=== PATIENT | female | born 1930 | race Caucasian/White ===

== ENCOUNTER 2018-08-31 18:24 | Emergency (ER) | payer MEDICARE, OTHER ==
[2018-08-31] MEDS ORDERED: Sodium Chloride 0.9% 1,000 ML IV SCH (19:15)
--- NOTE | 2018-08-31 20:01 | EDM.PDOC ---
ED HPI GENERAL MEDICAL PROBLEM - General Chief Complaint: Gastrointestinal Problem Stated Complaint: DIARRHEA Time Seen by Provider: 08/31/18 19:35 Source of Information: Reports: Patient History Limitations: Reports: No Limitations - History of Present Illness INITIAL COMMENTS - FREE TEXT/NARRATIVE: Yuli 88-year-old female with diarrhea for 10 days. She describes loose watery stools with no blood .Has happened several times today. There is no associated vomiting, fever, chills or abdominal pain. She was seen recently and tested negative for C. difficile.A trial of Immodium has failed. Abdominal Pain Score (Numeric/FACES): 3 - Related Data Allergies Allergy/AdvReac Type Severity Reaction Status Date / Time codeine Allergy Hives Verified 08/31/18 18:35 Penicillins Allergy Hives Verified 08/31/18 18:35 Home Meds: Home Meds Ascorbate Calcium [Vitamin C] 500 mg PO DAILY 08/31/18 [History] Aspirin [Ecotrin] 325 mg PO DAILY 08/31/18 [History] Calcium Carbonate [Calcium] 1,200 mg DAILY 08/31/18 [History] Cholecalciferol (Vitamin D3) [Vitamin D3] 800 unit PO DAILY 08/31/18 [History] Cyanocobalamin (Vitamin B12) [Vitamin B12] 250 mcg PO DAILY 08/31/18 [History] Lisinopril [Prinivil] 20 mg PO BEDTIME 08/31/18 [History] Lisinopril/Hydrochlorothiazide [Zestoretic 20-25 mg Tablet] 1 each PO DAILY 01/12 [History] Loperamide HCl [Loperamide] 2 mg QID PRN 08/31/18 [History] Magnesium 250 mg PO BID 08/31/18 [History] Multivitamin [Multivitamins] 1 each PO DAILY 08/31/18 [History] Simvastatin [Zocor] 20 mg PO BEDTIME 08/31/18 [History] Tolterodine [Detrol LA 24 Hr] 2 mg PO DAILY 08/31/18 [History] sitaGLIPtin Phos/Metformin HCl [Janumet 50-500 MG] 1 each PO BID 08/31/18 [ History] Past Medical History Cardiovascular History: Reports: High Cholesterol, Hypertension Gastrointestinal History: Reports: Cholelithiasis, Chronic Constipation, Hepatitis Other Gastrointestinal History: Hepatitis C Genitourinary History: Reports: None, Renal Disease Other Genitourinary History: stage 3 kidney disease LABORATORY ENGINEER History: Reports: Other LABORATORY ENGINEER History: [id number] Musculoskeletal History: Reports: Fracture Other Musculoskeletal History: hx fx ribs, L wrist x 2, R wrist x 1, Neurological History: Reports: Migraines Endocrine/Metabolic History: Reports: Diabetes, Type II, Hyperparathyroidism - Infectious Disease History Infectious Disease History: Reports: Chicken Pox, Hepatitis non A,B,C, Measles, Mumps - Past Surgical History HEENT Surgical History: Reports: Adenoidectomy, Cataract Surgery, Naso-Sinus Surgery, Tonsillectomy Other HEENT Surgeries/Procedures: bilat cataract Cardiovascular Surgical History: Reports: None GI Surgical History: Reports: Appendectomy, Colonoscopy Female Surgical History: Reports: Hysterectomy, Salpingo-Oophorectomy Endocrine Surgical History: Reports: Parathyroidectomy Other Endocrine Surgeries/Procedures: 1 parathyroid removed Social & Family History - Family History Family Medical History: Noncontributory - Tobacco Use Smoking Status *Q: Never Smoker - Caffeine Use Caffeine Use: Reports: Coffee - Recreational Drug Use Recreational Drug Use: No ED ROS GENERAL - Review of Systems Review Of Systems: ROS reveals no pertinent complaints other than HPI. ED EXAM, GI/ABD - Physical Exam Exam: See Below Exam Limited By: No Limitations General Appearance: Alert, WD/WN Eyes: Bilateral: Normal Appearance, EOMI Nose: Normal Inspection Neck: Normal Inspection Respiratory/Chest: No Respiratory Distress, Lungs Clear Cardiovascular: Normal Peripheral Pulses GI/Abdominal Exam: Normal Bowel Sounds, Soft, Non-Tender, No Mass. No: Distended, Rigid, Rebound, Hepatomegaly, Splenomegaly Course - Vital Signs Last Recorded V/S: Last Vital Signs Temp 97.3 F 08/31/18 18:29 Pulse 78 08/31/18 18:29 Resp 18 08/31/18 18:29 BP 166/83 H 08/31/18 18:29 Pulse Ox 98 08/31/18 18:29 - Orders/Labs/Meds Orders: Active Orders 24 hr Category Date Time Status CDIFF TOXIN A+B GROUP [OP] Stat Lab 08/31/18 20:00 Received Sodium Chloride 0.9% [Normal Saline] 1,000 ml Med 08/31/18 19:15 Active IV ASDIRECTED Sodium Chloride 0.9% [Saline Flush] Med 08/31/18 20:10 Active 10 ml FLUSH ASDIRECTED PRN Peripheral IV Insertion Adult [OM.PC] Routine Oth 08/31/18 19:10 Ordered Medication Orders Sodium Chloride (Normal Saline) 1,000 mls @ 999 mls/hr IV ASDIRECTED SAKSHI Last Admin: 08/31/18 19:15 Dose: 999 mls/hr Sodium Chloride (Saline Flush) 10 ml FLUSH ASDIRECTED PRN PRN Reason: Keep Vein Open Last Admin: 08/31/18 19:10 Dose: 10 ml Labs: Laboratory Tests 08/31/18 08/31/18 Range/Units 18:48 18:48 WBC 7.9 (4.5-12.0) X10-3/uL RBC 3.51 (3.23-5.20) x10(6)uL Hgb 11.5 (11.5-15.5) g/dL Hct 33.7 (30.0-51.3) % MCV 95.9 (80-96) fL MCH 32.7 (27.7-33.6) pg MCHC 34.1 (32.2-35.4) g/dL RDW 12.1 (11.5-15.5) % Plt Count 298 (125-369) X10(3)uL MPV 7.3 L (7.4-10.4) fL Neut % (Auto) 64.3 (46-82) % Lymph % (Auto) 20.1 (13-37) % Pope % (Auto) 11.9 (4-12) % Eos % (Auto) 3 (1.0-5.0) % Baso % (Auto) 0 (0-2) % Neut # (Auto) 5.1 (1.6-8.3) # Lymph # (Auto) 1.6 (0.6-5.0) # Pope # (Auto) 0.9 (0.0-1.3) # Eos # (Auto) 0.3 (0.0-0.8) # Baso # (Auto) 0.0 (0.0-0.2) # Sodium 130 L (135-145) mmol/L Potassium 4.5 (3.5-5.3) mmol/L Chloride 94 L (100-110) mmol/L Carbon Dioxide 27 (21-32) mmol/L BUN 22 H (7-18) mg/dL Creatinine 1.2 H (0.55-1.02) mg/dL Est Cr Clr Drug Dosing 25.39 mL/min Estimated GFR (MDRD) 43 L (>60) BUN/Creatinine Ratio 18.3 (9-20) Glucose 105 (80-116) mg/dL Calcium 9.3 (8.6-10.2) mg/dL Total Bilirubin 0.4 (0.1-1.3) mg/dL AST 32 H (5-25) IU/L ALT 26 (12-36) U/L Alkaline Phosphatase 69 (56-112) IU/L Total Protein 6.9 (6.0-8.0) g/dL Albumin 3.2 (3.2-4.6) g/dL Globulin 3.7 g/dL Albumin/Globulin Ratio 0.9 Meds: Medications Generic Name Dose Route Start Last Admin Trade Name Milla PRN Reason Stop Dose Admin Sodium Chloride 1,000 mls @ 999 mls/hr 08/31/18 19:15 08/31/18 19:15 Normal Saline IV 999 mls/hr ASDIRECTED SAKSHI Administration Sodium Chloride 10 ml 08/31/18 20:10 08/31/18 19:10 Saline Flush FLUSH 10 ml ASDIRECTED PRN Administration Keep Vein Open Discontinued Medications Generic Name Dose Route Start Last Admin Trade Name Milla PRN Reason Stop Dose Admin Diphenoxylate HCl/Atropine 2 tab 08/31/18 20:07 08/31/18 20:15 Lomotil 0.025-2.5 Mg PO 08/31/18 20:08 1 tab ONETIME ONE Administration Metronidazole 500 mg 08/31/18 20:08 08/31/18 20:15 Flagyl PO 08/31/18 20:09 500 mg ONETIME ONE Administration Metronidazole 500 mg 08/31/18 20:09 08/31/18 20:16 Flagyl PO 08/31/18 20:10 Not Given ONETIME ONE Departure - Departure Time of Disposition: 20:17 Disposition: Home, Self-Care 01 Condition: Good Clinical Impression: Diarrhea - Discharge Information Referrals: Madie Sanches, ELECTRIC RAZOR ASSEMBLER [Primary Care Provider] - Forms: ED Department Discharge - Problem List & Annotations (1) Diarrhea SNOMED Code(s): 57698964 Code(s): R19.7 - DIARRHEA, UNSPECIFIED Status: Acute Current Visit: Yes Qualifiers: Diarrhea type: unspecified type Qualified Code(s): R19.7 - Diarrhea, unspecified (2) Hyponatremia SNOMED Code(s): 16266955 Code(s): E87.1 - HYPO-OSMOLALITY AND HYPONATREMIA Status: Acute Current Visit: Yes - Problem List Review Problem List Initiated/Reviewed/Updated: Yes - My Orders Last 24 Hours: My Active Orders 08/31/18 19:10 Peripheral IV Insertion Adult [OM.PC] Routine 08/31/18 19:15 Sodium Chloride 0.9% [Normal Saline] 1,000 ml IV ASDIRECTED 08/31/18 20:00 CDIFF TOXIN A+B GROUP [OP] Stat 08/31/18 20:10 Sodium Chloride 0.9% [Saline Flush] 10 ml FLUSH ASDIRECTED PRN - Assessment/Plan Last 24 Hours: My Active Orders 08/31/18 19:10 Peripheral IV Insertion Adult [OM.PC] Routine 08/31/18 19:15 Sodium Chloride 0.9% [Normal Saline] 1,000 ml IV ASDIRECTED 08/31/18 20:00 CDIFF TOXIN A+B GROUP [OP] Stat 08/31/18 20:10 Sodium Chloride 0.9% [Saline Flush] 10 ml FLUSH ASDIRECTED PRN Plan: 1 L NS. I will send out another stool,but treat [id number] Lomotil.
[2018-08-31] MEDS ORDERED: Atropine/Diphenoxylate 0.025-2.5 MG Tab PO ONE (20:07)
[2018-08-31] MEDS ORDERED: metroNIDAZOLE 500 MG Tab PO ONE ×2 (20:08→20:09)
[2018-08-31] MEDS ORDERED: Sodium Chloride 0.9% 10 ML Syringe FLUSH PRN (20:10)
== END 2018-08-31 20:43 | disposition home or self-care (01) ==
LOC: FB.ED 18:24
DX: R19.7 Diarrhea, unspecified (principal); E78.00 Pure hypercholesterolemia, unspecified; N18.3 Chronic kidney disease, stage 3 (moderate); I12.9 Hypertensive chronic kidney disease with stage 1 through stage 4 chronic kidney disease, or unspecified chronic kidney disease; E11.22 Type 2 diabetes mellitus with diabetic chronic kidney disease; E05.90 Thyrotoxicosis, unspecified without thyrotoxic crisis or storm; Z88.5 Allergy status to narcotic agent; Z88.0 Allergy status to penicillin; Z88.2 Allergy status to sulfonamides; Z79.82 Long term (current) use of aspirin; Z79.84 Long term (current) use of oral hypoglycemic drugs
CPT/HCPCS: 36415; 80053; 85025; 87324; 96360; 99284; A9270; J7030

== ENCOUNTER 2018-09-03 14:13 | Emergency (ER) | payer MEDICARE, OTHER ==
--- NOTE | 2018-09-03 15:03 | EDM.PDOC ---
ED HPI GENERAL MEDICAL PROBLEM - General Chief Complaint: Gastrointestinal Problem Stated Complaint: NAUSEA, DIARRHEA, LOWER BACK PAIN Time Seen by Provider: 09/03/18 14:13 Source of Information: Reports: Patient, Family History Limitations: Reports: No Limitations - History of Present Illness INITIAL COMMENTS - FREE TEXT/NARRATIVE: 88 y.o.w.f came with her daughter to the ed due to diarrhea for 10 days. Pt is doing fine when she take Imodium . She was tested for C Diff which was neg. Pt is for 7 days on Flagyl and cipro with out improvement passing loose stool. Pt did not loose weight. No dizziness, no lightheadedness no vomiting, no SOB. Her last colonoscopy was several years ago. No blood in stool. As per daughter, pt is not taking her meds as recommended. Pt lives by herself, No other acute medical issues. BP 132/71 RR 17 Pulse ox 100% on RA pulse 75 Temp 36.6 Onset: Unknown/Unsure Onset Date: 08/23/18 Onset Time: 07:00 Duration: Week(s):, Intermittent, Waxing/Waning Location: Reports: Abdomen Quality: Reports: Same as Previous Episode, Other (no weight loss) Severity: Mild Improves with: Reports: Medication Context: Reports: Other Associated Symptoms: Reports: Other (occ nause, no vomiting ) Treatments SMOKING PIPE REPAIRER: Reports: Other (see below) (Flagyl, Cipro Imodium) - Related Data Allergies Allergy/AdvReac Type Severity Reaction Status Date / Time codeine Allergy Hives Verified 09/03/18 15:27 Penicillins Allergy Hives Verified 09/03/18 15:27 Home Meds: Home Meds Ascorbate Calcium [Vitamin C] 500 mg PO DAILY 08/31/18 [History] Aspirin [Ecotrin] 325 mg PO DAILY 08/31/18 [History] Calcium Carbonate [Calcium] 1,200 mg DAILY 08/31/18 [History] Cholecalciferol (Vitamin D3) [Vitamin D3] 800 unit PO DAILY 08/31/18 [History] Cyanocobalamin (Vitamin B12) [Vitamin B12] 250 mcg PO DAILY 08/31/18 [History] Lisinopril [Prinivil] 20 mg PO BEDTIME 08/31/18 [History] Lisinopril/Hydrochlorothiazide [Zestoretic 20-25 mg Tablet] 1 each PO DAILY 01/12 [History] Loperamide HCl [Loperamide] 2 mg QID PRN 08/31/18 [History] Magnesium 250 mg PO BID 08/31/18 [History] Multivitamin [Multivitamins] 1 each PO DAILY 08/31/18 [History] Simvastatin [Zocor] 20 mg PO BEDTIME 08/31/18 [History] Tolterodine [Detrol LA 24 Hr] 2 mg PO DAILY 08/31/18 [History] sitaGLIPtin Phos/Metformin HCl [Janumet 50-500 MG] 1 each PO BID 08/31/18 [ History] Past Medical History Cardiovascular History: Reports: High Cholesterol, Hypertension Gastrointestinal History: Reports: Cholelithiasis, Chronic Constipation, Hepatitis Other Gastrointestinal History: Hepatitis C Genitourinary History: Reports: None, Renal Disease Other Genitourinary History: stage 3 kidney disease LITERACY COACH History: Reports: Other LITERACY COACH History: [id number] Musculoskeletal History: Reports: Fracture Other Musculoskeletal History: hx fx ribs, L wrist x 2, R wrist x 1, Neurological History: Reports: Migraines Endocrine/Metabolic History: Reports: Diabetes, Type II, Hyperparathyroidism - Infectious Disease History Infectious Disease History: Reports: Chicken Pox, Hepatitis non A,B,C, Measles, Mumps - Past Surgical History HEENT Surgical History: Reports: Adenoidectomy, Cataract Surgery, Naso-Sinus Surgery, Tonsillectomy Other HEENT Surgeries/Procedures: bilat cataract Cardiovascular Surgical History: Reports: None GI Surgical History: Reports: Appendectomy, Colonoscopy Female Surgical History: Reports: Hysterectomy, Salpingo-Oophorectomy Endocrine Surgical History: Reports: Parathyroidectomy Other Endocrine Surgeries/Procedures: 1 parathyroid removed Social & Family History - Family History Family Medical History: Noncontributory - Caffeine Use Caffeine Use: Reports: Coffee ED ROS GENERAL - Review of Systems Review Of Systems: See Below Constitutional: Reports: No Symptoms HEENT: Reports: No Symptoms Respiratory: Reports: No Symptoms Cardiovascular: Reports: No Symptoms Endocrine: Reports: No Symptoms GI/Abdominal: Reports: Diarrhea (loosse stool), Nausea : Reports: No Symptoms Musculoskeletal: Reports: No Symptoms, Muscle Pain Skin: Reports: No Symptoms Neurological: Reports: No Symptoms Psychiatric: Reports: No Symptoms Hematologic/Lymphatic: Reports: No Symptoms Immunologic: Reports: No Symptoms ED EXAM, GI/ABD - Physical Exam Exam: See Below Exam Limited By: No Limitations General Appearance: Alert, WD/WN, Mild Distress, Thin Eyes: Bilateral: Normal Appearance Ears: Normal External Exam Nose: Normal Inspection Throat/Mouth: Normal Inspection Head: Atraumatic, Normocephalic Neck: Normal Inspection, Supple, Non-Tender, Full Range of Motion Respiratory/Chest: No Respiratory Distress, Lungs Clear, Normal Breath Sounds, No Accessory Muscle Use, Chest Non-Tender Cardiovascular: Normal Peripheral Pulses, Regular Rate, Rhythm, No Edema, No Gallop GI/Abdominal Exam: Soft, Non-Tender, No Organomegaly, No Abnormal Bruit, No Mass , Pelvis Stable, Abnormal Bowel Sounds (Female) Exam: Deferred Rectal (Female) Exam: Deferred Back Exam: Normal Inspection, Full Range of Motion Extremities: Normal Inspection, Normal Range of Motion, Non-Tender, No Pedal Edema, Normal Capillary Refill Neurological: Alert, Oriented, CN II-XII Intact, Normal Cognition, Normal Gait Psychiatric: Normal Affect, Normal Mood Skin Exam: Warm, Dry, Intact, Normal Color, No Rash Lymphatic: No Adenopathy Course - Vital Signs Text/Narrative:: 88 y.o.w.f came with her daughter to the ed due to diarrhea for 10 days. Pt is doing fine when she take Imodium . She was tested for C Diff which was neg. Pt is for 7 days on Flagyl and cipro with out improvement passing loose stool. Pt did not loose weight. No dizziness, no lightheadedness no vomiting, no SOB. Her last colonoscopy was several years ago. No blood in stool. As per daughter, pt is not taking her meds as recommended. Pt lives by herself, No other acute medical issues. BP 132/71 RR 17 Pulse ox 100% on RA pulse 75 Temp 36.6 PE: WNWD W F in NAD Labs: Refused Impression: chronic Diarrhea off/ on Tx: none Reexam: Pt was stable here in the ed, refused any w/u. Did not loose any weight. Plan: D/C with instructions Last Recorded V/S: Last Vital Signs Temp 36.3 C 09/03/18 14:30 Pulse 75 09/03/18 14:30 Resp 17 09/03/18 14:30 BP 132/71 09/03/18 14:30 Pulse Ox 100 09/03/18 14:30 Departure - Departure Time of Disposition: 15:04 Disposition: Home, Self-Care 01 Condition: Good Clinical Impression: Diarrhea Qualifiers: Diarrhea type: unspecified type Qualified Code(s): R19.7 - Diarrhea, unspecified - Discharge Information Referrals: Madie Sanches, DUPLICATING MACHINE OPERATOR [Primary Care Provider] - Forms: ED Department Discharge Additional Instructions: Please cont your meds, including Imodium, Please f/u with Dr. Fernandez, please come back if your symptoms get worse acutely.
== END 2018-09-03 15:15 | disposition home or self-care (01) ==
LOC: FB.ED 14:13
DX: R19.7 Diarrhea, unspecified (principal); N18.3 Chronic kidney disease, stage 3 (moderate); I12.9 Hypertensive chronic kidney disease with stage 1 through stage 4 chronic kidney disease, or unspecified chronic kidney disease; E11.22 Type 2 diabetes mellitus with diabetic chronic kidney disease; Z88.5 Allergy status to narcotic agent; Z88.0 Allergy status to penicillin; Z79.82 Long term (current) use of aspirin; Z79.899 Other long term (current) drug therapy
CPT/HCPCS: 99283

== ENCOUNTER 2020-10-10 16:41 | Emergency (ER) | payer MEDICARE, OTHER ==
[2020-10-10] MEDS ORDERED: Sodium Chloride 0.9% 10 ML Syringe FLUSH PRN (16:42)
[2020-10-10] MEDS ORDERED: Sodium Bicarbonate 8.4% 50 MEQ/50 ML Syringe IVPUSH STA (16:43)
[2020-10-10] MEDS ORDERED: Sodium Chloride 0.9% 1,000 ML IV SCH (16:45)
--- NOTE | 2020-10-10 19:50 | EDM.PDOC ---
ED HPI GENERAL MEDICAL PROBLEM - General Chief Complaint: Gastrointestinal Problem Stated Complaint: IV THERAPY Time Seen by Provider: 10/10/20 16:45 Source of Information: Reports: Patient, Family History Limitations: Reports: No Limitations - History of Present Illness INITIAL COMMENTS - FREE TEXT/NARRATIVE: Patient presented to the ED from the [facility] because of dehydration and hyperkalemia with a potassium of 5.3. She denies having any chest pain. She has diarrhea for 2 weeks now which is mostly watery and is taking imodium. She had CT abd/pelvis X 2 which were both unremarkable except for a colitis. - Related Data Allergies Allergy/AdvReac Type Severity Reaction Status Date / Time codeine Allergy Hives Verified 10/10/20 18:01 Penicillins Allergy Hives Verified 10/10/20 18:01 Home Meds: Home Meds Ascorbate Calcium [Vitamin C] 500 mg PO DAILY 08/31/18 [History] Aspirin [Ecotrin] 325 mg PO DAILY 08/31/18 [History] Calcium Carbonate [Calcium] 1,200 mg DAILY 08/31/18 [History] Cholecalciferol (Vitamin D3) [Vitamin D3] 800 unit PO DAILY 08/31/18 [History] Cyanocobalamin (Vitamin B12) [Vitamin B12] 250 mcg PO DAILY 08/31/18 [History] Lisinopril/Hydrochlorothiazide [Zestoretic 20-25 mg Tablet] 1 each PO DAILY 08/31/18 [History] Loperamide HCl [Loperamide] 2 mg QID PRN 08/31/18 [History] Magnesium 250 mg PO BID 08/31/18 [History] Multivitamin [Multivitamins] 1 each PO DAILY 08/31/18 [History] Simvastatin [Zocor] 20 mg PO BEDTIME 08/31/18 [History] Tolterodine [Detrol LA 24 Hr] 2 mg PO DAILY 08/31/18 [History] lisinopriL [Prinivil] 20 mg PO BEDTIME 08/31/18 [History] sitaGLIPtin Phos/Metformin HCl [Janumet 50-500 MG] 1 each PO BID 08/31/18 [History] Past Medical History Cardiovascular History: Reports: High Cholesterol, Hypertension Gastrointestinal History: Reports: Cholelithiasis, Chronic Constipation, Hepatitis Other Gastrointestinal History: Hepatitis C Genitourinary History: Reports: None, Renal Disease Other Genitourinary History: stage 3 kidney disease HAND FINISHER History: Reports: Other HAND FINISHER History: [id number] Musculoskeletal History: Reports: Fracture Other Musculoskeletal History: hx fx ribs, L wrist x 2, R wrist x 1, Neurological History: Reports: Migraines Endocrine/Metabolic History: Reports: Diabetes, Type II, Hyperparathyroidism - Infectious Disease History Infectious Disease History: Reports: Chicken Pox, Hepatitis non A,B,C, Measles, Mumps - Past Surgical History HEENT Surgical History: Reports: Adenoidectomy, Cataract Surgery, Naso-Sinus Surgery, Tonsillectomy Other HEENT Surgeries/Procedures: bilat cataract Cardiovascular Surgical History: Reports: None GI Surgical History: Reports: Appendectomy, Colonoscopy Female Surgical History: Reports: Hysterectomy, Salpingo-Oophorectomy Endocrine Surgical History: Reports: Parathyroidectomy Other Endocrine Surgeries/Procedures: 1 parathyroid removed Social & Family History - Family History Family Medical History: No Pertinent Family History - Caffeine Use Caffeine Use: Reports: Coffee ED ROS GENERAL - Review of Systems Review Of Systems: See Below Constitutional: Reports: No Symptoms HEENT: Reports: No Symptoms Respiratory: Reports: No Symptoms Cardiovascular: Reports: No Symptoms Endocrine: Reports: No Symptoms GI/Abdominal: Reports: Diarrhea : Reports: No Symptoms Musculoskeletal: Reports: No Symptoms Skin: Reports: No Symptoms Neurological: Reports: No Symptoms Psychiatric: Reports: No Symptoms ED EXAM, GENERAL - Physical Exam Exam: See Below Exam Limited By: No Limitations General Appearance: Alert, No Apparent Distress Ears: Normal External Exam, Normal Canal Nose: Normal Inspection, Normal Mucosa, No Blood Throat/Mouth: Normal Inspection, Normal Lips, Normal Teeth Head: Atraumatic, Normocephalic Neck: Normal Inspection, Supple, Non-Tender, Full Range of Motion Respiratory/Chest: No Respiratory Distress, Lungs Clear, Normal Breath Sounds, No Accessory Muscle Use, Chest Non-Tender Cardiovascular: Normal Peripheral Pulses, Regular Rate, Rhythm, No Edema, No Gallop, No JVD, No Murmur, No Rub GI/Abdominal: Normal Bowel Sounds, Soft, Non-Tender, No Organomegaly, No Distention, No Abnormal Bruit, No Mass Back Exam: Normal Inspection, Full Range of Motion Extremities: Normal Inspection, Normal Range of Motion, Non-Tender, No Pedal Edema, Normal Capillary Refill Course - Vital Signs Text/Narrative:: Lab result was discussed with patient and her sister NS 1 L bolus Sodium bicarbonate 8.4 % 50 meq IV x1 Last Recorded V/S: Last Vital Signs Temp 36.4 C 10/10/20 16:41 Pulse 71 10/10/20 17:41 Resp 18 10/10/20 17:41 BP 137/73 10/10/20 17:41 Pulse Ox 98 10/10/20 17:41 - Orders/Labs/Meds Orders: Active Orders 24 hr Category Date Time Status Saline Lock Insert [OM.PC] Routine Oth 10/10/20 16:42 Ordered Labs: Laboratory Tests 10/10/20 Range/Units 19:20 Sodium 137 (135-145) mmol/L Potassium 4.6 (3.5-5.3) mmol/L Chloride 102 D (100-110) mmol/L Carbon Dioxide 27 (21-32) mmol/L BUN 16 (7-18) mg/dL Creatinine 1.0 (0.55-1.02) mg/dL Est Cr Clr Drug Dosing 29.34 mL/min Estimated GFR (MDRD) 52 L (>60) BUN/Creatinine Ratio 16.0 (9-20) Glucose 176 H (80-116) mg/dL Calcium 8.4 L (8.6-10.2) mg/dL Meds: Medications Discontinued Medications Generic Name Dose Route Start Last Admin Trade Name Freq PRN Reason Stop Dose Admin Sodium Chloride 1,000 mls @ 999 mls/hr 10/10/20 16:45 10/10/20 17:50 Normal Saline IV 999 mls/hr ASDIRECTED SAKSHI Administration Sodium Bicarbonate 50 meq 10/10/20 16:43 10/10/20 18:09 Sodium Bicarbonate 8.4% 50 Meq/50 Ml Syringe IVPUSH 10/10/20 16:44 50 meq NOW STA Administration Sodium Chloride 10 ml 10/10/20 16:42 10/10/20 17:50 Sodium Chloride 0.9% 10 Ml Syringe FLUSH 10 ml ASDIRECTED PRN Administration Keep Vein Open Departure - Departure Time of Disposition: 19:30 Disposition: Home, Self-Care 01 Condition: Good Clinical Impression: Hyperkalemia, Dehydration, Gastroenteritis - Discharge Information Instructions: Hyperkalemia, [id number], Dehydration, Adult, [id number], Viral Gastroenteritis, Adult, [id number] Referrals: Madie Sanches SUPERVISOR OVENS [Primary Care Provider] - Forms: ED Department Discharge Additional Instructions: Please read discharge instructions in [place]rick potassium and dehydration Increase oral fluids-drink 1.5 to 2 liters a day Follow up as needed Sepsis Event Note (ED) - Evaluation Sepsis Screening Result: No Definite Risk - My Orders Last 24 Hours: My Active Orders 10/10/20 16:42 Saline Lock Insert [OM.PC] Routine - Assessment/Plan Last 24 Hours: My Active Orders 10/10/20 16:42 Saline Lock Insert [OM.PC] Routine
== END 2020-10-10 20:01 | disposition home or self-care (01) ==
LOC: FB.ED 16:41
DX: K52.9 Noninfective gastroenteritis and colitis, unspecified (principal); E86.0 Dehydration; E87.5 Hyperkalemia; I12.9 Hypertensive chronic kidney disease with stage 1 through stage 4 chronic kidney disease, or unspecified chronic kidney disease; E11.22 Type 2 diabetes mellitus with diabetic chronic kidney disease; N18.30 Chronic kidney disease, stage 3 unspecified; E03.9 Hypothyroidism, unspecified; E78.00 Pure hypercholesterolemia, unspecified; Z79.899 Other long term (current) drug therapy; Z90.49 Acquired absence of other specified parts of digestive tract; Z90.710 Acquired absence of both cervix and uterus; Z79.82 Long term (current) use of aspirin; Z88.0 Allergy status to penicillin; Z88.5 Allergy status to narcotic agent
CPT/HCPCS: 36415; 80048; 96374; 99284; J7030

== ENCOUNTER 2021-03-09 15:34 | Emergency (ER) | payer MEDICARE, OTHER ==
--- NOTE | 2021-03-09 16:43 | CR ---
INDICATION: Constipation x 4 day. Rectal pain. Incident of diarrhea in radiology. ABDOMEN, TWO VIEW: Supine and upright views of the abdomen were obtained 03/09/[address] abdomen and pelvis from 09/30/20. There are some minimal air-fluid levels in the right colon, which may be on the basis of paralytic ileus due to localized inflammatory disease, such as appendicitis. Finding may be on the basis of gastroenteritis additionally. Probable fluid-filled colon is noted, which would suggest gastroenteritis, but should be correlated clinically. An oblong area of somewhat metallic density overlying the right sacrum was in a different location on the supine view than on the upright view and may represent medication. Clips compatible with previous lower abdomen - pelvic surgery are noted in the skin. IMPRESSION: Air-fluid levels on the right, etiology indeterminate - correlate clinically. No finding to strongly suggest mechanically obstructive process is identified. MTDD
--- NOTE | 2021-03-09 16:43 | EDM.PDOC ---
ED HPI GENERAL MEDICAL PROBLEM - General Chief Complaint: Gastrointestinal Problem Stated Complaint: BOWEL ISSIUES Time Seen by Provider: 03/09/21 15:40 Source of Information: Reports: Patient History Limitations: Reports: No Limitations - History of Present Illness INITIAL COMMENTS - FREE TEXT/NARRATIVE: Patient preseted to the ED because of constipation for 5 days with associated nausea but no vomiting. There is no abdominal pain or urinary symptoms. Rectal Pain Score (Numeric/FACES): 6 - Related Data Allergies Allergy/AdvReac Type Severity Reaction Status Date / Time codeine Allergy Hives Verified 10/10/20 18:01 Penicillins Allergy Hives Verified 10/10/20 18:01 Home Meds: Home Meds Ascorbate Calcium [Vitamin C] 500 mg PO DAILY 08/31/18 [History] Aspirin [Ecotrin] 325 mg PO DAILY 08/31/18 [History] Calcium Carbonate [Calcium] 1,200 mg DAILY 08/31/18 [History] Cholecalciferol (Vitamin D3) [Vitamin D3] 800 unit PO DAILY 08/31/18 [History] Cyanocobalamin (Vitamin B12) [Vitamin B12] 250 mcg PO DAILY 08/31/18 [History] Lisinopril/Hydrochlorothiazide [Zestoretic 20-25 mg Tablet] 1 each PO DAILY 08/31/18 [History] Loperamide HCl [Loperamide] 2 mg QID PRN 08/31/18 [History] Magnesium 250 mg PO BID 08/31/18 [History] Multivitamin [Multivitamins] 1 each PO DAILY 08/31/18 [History] Simvastatin [Zocor] 20 mg PO BEDTIME 08/31/18 [History] Tolterodine [Detrol LA 24 Hr] 2 mg PO DAILY 08/31/18 [History] lisinopriL [Prinivil] 20 mg PO BEDTIME 08/31/18 [History] sitaGLIPtin Phos/Metformin HCl [Janumet 50-500 MG] 1 each PO BID 08/31/18 [History] Magnesium Citrate 295 ml PO ONETIME #1 bottle 03/09/21 [Rx] Ondansetron [Zofran ODT] 4 mg PO Q4H PRN #5 tab.dis 03/09/21 [Rx] Sennosides/Docusate Sodium [Senna-S] 2 each PO ONETIME #2 tablet 03/09/21 [Rx] Past Medical History Cardiovascular History: Reports: High Cholesterol, Hypertension Gastrointestinal History: Reports: Cholelithiasis, Chronic Constipation, Hepatitis Other Gastrointestinal History: Hepatitis C Genitourinary History: Reports: None, Renal Disease Other Genitourinary History: stage 3 kidney disease [employer]IRS[employer] INSPECTOR History: Reports: Other [employer]IRS[employer]ING INSPECTOR History: [id number] Musculoskeletal History: Reports: Fracture Other Musculoskeletal History: hx fx ribs, L wrist x 2, R wrist x 1, Neurological History: Reports: Migraines Endocrine/Metabolic History: Reports: Diabetes, Type II, Hyperparathyroidism - Infectious Disease History Infectious Disease History: Reports: Chicken Pox, Hepatitis non A,B,C, Measles, Mumps - Past Surgical History HEENT Surgical History: Reports: Adenoidectomy, Cataract Surgery, Naso-Sinus Surgery, Tonsillectomy Other HEENT Surgeries/Procedures: bilat cataract Cardiovascular Surgical History: Reports: None GI Surgical History: Reports: Appendectomy, Colonoscopy Female Surgical History: Reports: Hysterectomy, Salpingo-Oophorectomy Endocrine Surgical History: Reports: Parathyroidectomy Other Endocrine Surgeries/Procedures: 1 parathyroid removed Musculoskeletal Surgical History: Reports: Carpal Tunnel, ORIF, Other (See Below) Other Musculoskeletal Surgeries/Procedures:: L knee surgery, L elbow, ORIF L wrist, R carpal tunnel release Social & Family History - Family History Family Medical History: No Pertinent Family History - Tobacco Use Tobacco Use Status *Q: Never Tobacco User - Caffeine Use Caffeine Use: Reports: Coffee - Recreational Drug Use Recreational Drug Use: No ED ROS GENERAL - Review of Systems Review Of Systems: See Below Constitutional: Reports: No Symptoms HEENT: Reports: No Symptoms Respiratory: Reports: No Symptoms Cardiovascular: Reports: No Symptoms Endocrine: Reports: No Symptoms GI/Abdominal: Reports: Constipation, Nausea : Reports: No Symptoms Musculoskeletal: Reports: No Symptoms Skin: Reports: No Symptoms Neurological: Reports: No Symptoms Psychiatric: Reports: No Symptoms ED EXAM, GI/ABD - Physical Exam Exam: See Below Exam Limited By: No Limitations General Appearance: Alert, No Apparent Distress Ears: Normal External Exam, Normal Canal Nose: Normal Inspection, Normal Mucosa, No Blood Throat/Mouth: Normal Inspection, Normal Lips, Normal Teeth, Normal Gums, Normal Oropharynx, Normal Voice Head: Atraumatic, Normocephalic Neck: Normal Inspection, Supple, Non-Tender, Full Range of Motion Respiratory/Chest: No Respiratory Distress, Lungs Clear, Normal Breath Sounds, No Accessory Muscle Use, Chest Non-Tender Cardiovascular: Normal Peripheral Pulses, Regular Rate, Rhythm, No Edema, No Gallop, No JVD, No Murmur, No Rub GI/Abdominal Exam: Normal Bowel Sounds, Soft, Non-Tender, No Organomegaly, No Distention, No Abnormal Bruit, No Mass Back Exam: Normal Inspection, Full Range of Motion Extremities: Normal Inspection, Normal Range of Motion Neurological: Alert, Oriented, CN II-XII Intact, Normal Cognition, Normal Gait Psychiatric: Normal Affect Course - Vital Signs Text/Narrative:: Abdominal xray-see result Last Recorded V/S: Last Vital Signs Temp 37.3 C 03/09/21 15:36 Pulse 94 03/09/21 15:36 Resp 20 03/09/21 15:36 BP 145/80 H 03/09/21 15:36 Pulse Ox 96 03/09/21 15:36 Departure - Departure Time of Disposition: 16:45 Disposition: Home, Self-Care 01 Condition: Good Clinical Impression: Constipation - Discharge Information Prescriptions: Magnesium Citrate 295 ml PO ONETIME #1 bottle Sennosides/Docusate Sodium [Senna-S] 2 each PO ONETIME #2 tablet Ondansetron [Zofran ODT] 4 mg PO Q4H PRN #5 tab.dis PRN Reason: Nausea Instructions: Chronic Constipation Referrals: Madie Sanches NP [Primary Care Provider] - Forms: ED Department Discharge Additional Instructions: Please read discharge instructions on constipation Take the following medications in order: 1.Zofran/Odansetron ODT 4 mg 1-2 tablets before taking the other medications 2.Senna S-2 tablets 3.Miralax/Xlax dissolve 2 sachets in a glass of water then drink the entire solution 4. Magnesium citrate, drink the entire bottle Be close to the toilet because you will have a big bowel movement Sepsis Event Note (ED) - Evaluation Sepsis Screening Result: No Definite Risk
== END 2021-03-09 16:49 | disposition home or self-care (01) ==
LOC: FB.ED 15:34
DX: K59.00 Constipation, unspecified (principal); E78.00 Pure hypercholesterolemia, unspecified; I12.9 Hypertensive chronic kidney disease with stage 1 through stage 4 chronic kidney disease, or unspecified chronic kidney disease; E11.22 Type 2 diabetes mellitus with diabetic chronic kidney disease; N18.30 Chronic kidney disease, stage 3 unspecified; Z88.0 Allergy status to penicillin; Z88.5 Allergy status to narcotic agent; Z79.82 Long term (current) use of aspirin; Z79.899 Other long term (current) drug therapy
CPT/HCPCS: 74019; 99283-25